=== PATIENT | male | born 1960 | race Caucasian/White ===

== ENCOUNTER 2018-01-22 14:25 | Emergency (ER) | payer MEDICAID ==
[2018-01-22] MEDS: CEFAZOLIN 1 GM/50 ML (PMX) 50 ML IVPB (15:36)
[2018-01-22] MEDS: DIPHTH/TET/ACEL PERTUSS (ADULT) 0.5 ML VIAL IM* (15:36)
[2018-01-22] MEDS: HYDROmorphONE 0.5 MG/0.5 ML SYG IV ×2 (15:37→17:08)
[2018-01-22] MEDS: LIDOCAINE 1% (MDV) 20 ML INJ SC (17:08)
== END 2018-01-22 20:19 | disposition home or self-care (01) ==
LOC: E/R 14:25
DX: S92.421B Displaced fracture of distal phalanx of right great toe, initial encounter for open fracture (principal); S92.501A Displaced unspecified fracture of right lesser toe(s), initial encounter for closed fracture; F17.210 Nicotine dependence, cigarettes, uncomplicated; W20.8XXA Other cause of strike by thrown, projected or falling object, initial encounter; Y92.9 Unspecified place or not applicable; Z23 Encounter for immunization
CPT/HCPCS: 73630; 73660; 90471; 90715; 96374; 96375; 96376; 99284-25